=== PATIENT | female | born 1950 | race Caucasian/White ===

== ENCOUNTER 2020-03-18 15:43 | Emergency (ER) | payer OTHER ==
[~2020-03-18 15:43] MED LIST: SERTRALINE HCL100 MG PO
[2020-03-18] MEDS ORDERED: NORVASC 2.5 MG2.5 M1 PO (15:46)
[2020-03-18] MEDS ORDERED: SIMVASTATIN80 MG PO (15:46)
== END 2020-03-18 17:35 | disposition home or self-care (01) ==
LOC: ER 15:43
DX: S61.210A Laceration without foreign body of right index finger without damage to nail, initial encounter (principal); I10 Essential (primary) hypertension; Z79.899 Other long term (current) drug therapy; W26.8XXA Contact with other sharp object(s), not elsewhere classified, initial encounter; Y93.89 Activity, other specified; Y92.89 Other specified places as the place of occurrence of the external cause; Y99.8 Other external cause status